=== PATIENT | male | born 1990 | race Caucasian/White ===

== ENCOUNTER 2022-06-07 22:04 | Emergency (ER) | payer MEDICAID, OTHER ==
[~2022-06-07] VITALS: Ht 167.6 cm; Wt 82.0 kg
[2022-06-08] MEDS ORDERED: ONDANSETRON HCL 4MG/2ML INJ IV STA (01:23)
[2022-06-08] MEDS ORDERED: FOLIC ACID 1 MG, THIAMINE HCL 100 MG, MVI, ADULT NO.1 10 ML in DEXTROSE 5% WATER 1,000 ML IV ONE ×4 (01:30)
[2022-06-08 02:14] LABS: CHLORIDE 104 mEq/L (98-107); EOSINOPHILS % 0.1 % (0.0-5.0); HEMATOCRIT. 49.6 % (42.0-52.0); LYMPHOCYTES % 25.8 % (20.0-50.0); MEAN CORPUSCULAR VOLUME 96.5 fL (80.0-94.0); MEAN PLATELET VOLUME 11.3 fl (7.4-10.4); MONOCYTES % 12.3 % (2.0-8.0); NEUTROPHILS % 58.8 % (40.0-76.0); PLATELET 115 x1000/uL (130-400); RED BLOOD CELL COUNT 5.14 mill/uL (4.7-6.1); RED CELL DISTRIBUTION WIDTH 13.9 % (11.6-14.6)
[2022-06-08] MEDS ORDERED: ONDA4TAB50 MT (04:39)
[2022-06-08 04:50] VITALS: BP 125/83
== END 2022-06-08 05:06 | disposition home or self-care (01) ==
LOC: EDBD → ER 22:04
DX: F10.229 Alcohol dependence with intoxication, unspecified (principal); F12.10 Cannabis abuse, uncomplicated; Y90.9 Presence of alcohol in blood, level not specified; M79.18 Myalgia, other site; R74.01 Elevation of levels of liver transaminase levels; R74.8 Abnormal levels of other serum enzymes
CPT/HCPCS: 36415; 80053; 83690; 85025; 96365; 96366; 96375; 99284; J2405; J3411; J3490; J7070

== ENCOUNTER 2022-06-08 06:15 | Inpatient (IN) | payer MEDICAID, OTHER ==
[~2022-06-08] VITALS: Ht 177.8 cm; Wt 83.9 kg
[~2022-06-08 06:15] MED LIST: ONDA4TAB50 MT
[2022-06-08] MEDS ORDERED: LORAZEPAM 2MG/ML CPJ IV STA (07:38)
[2022-06-08] MEDS ORDERED: FOLIC ACID 1 MG, THIAMINE HCL 100 MG, MVI, ADULT NO.1 10 ML in DEXTROSE 5% WATER 1,000 ML IV ONE ×4 (07:45)
[2022-06-08] MEDS ORDERED: ONDANSETRON HCL 4MG/2ML INJ IV ONE (07:45)
[2022-06-08 07:58] LABS: HEMATOCRIT. 46.4 % (42.0-52.0); HEMOGLOBIN. 15.6 g/dL (14.0-18.0); MEAN CORPUSCULAR HEMOGLOBIN 32.7 pg (28.0-32.0); MEAN CORPUSCULAR VOLUME 97.1 fL (80.0-94.0); MEAN PLATELET VOLUME 11.9 fl (7.4-10.4); PLATELET 106 x1000/uL (130-400); RED BLOOD CELL COUNT 4.78 mill/uL (4.7-6.1)
[2022-06-08 08:05] LABS: CHLORIDE 100 mEq/L (98-107)
[2022-06-08 08:14] LABS: ETHANOL BLOOD 269 mg/dL
[2022-06-08 09:15] LABS: PLATELET ESTIMATE DECREASED
[2022-06-08 11:01] VITALS: BP 130/84
[2022-06-08] MEDS ORDERED: MAGNESIUM/ALUMINUM HYDROXIDE/SIMETHICONE 30ML UDC PO PRN (11:30)
[2022-06-08] MEDS ORDERED: CLONIDINE 0.1MG TABLET PO PRN (11:30)
[2022-06-08] MEDS ORDERED: ACETAMINOPHEN 325MG TABLET PO PRN ×2 (11:30)
[2022-06-08] MEDS ORDERED: ZOLPIDEM TARTRATE 5MG TABLET PO PRN (11:30)
[2022-06-08 12:00] VITALS: BP 130/84
[2022-06-08] MEDS ORDERED: KETOROLAC 15MG/ML VIAL IV PRN (13:00)
[2022-06-08] MEDS: CHLORDIAZEPOXIDE 25MG CAPSULE PO SCH ×2 (14:11→21:26)
[2022-06-08] MEDS: LORAZEPAM 2MG/ML CPJ IV PRN ×3 (14:11→22:45)
[2022-06-08] MEDS: SODIUM CHLORIDE 0.9% 1,000 ML IV SCH ×2 (14:11→21:26)
[2022-06-08] MEDS ORDERED: INFLUENZA VACCINE 05/PF 0.5 ML SYRINGE IM ONE (15:15)
[2022-06-08] MEDS ORDERED: PNEUMOCOCCAL 23-VAL P-SAC VAC 0.5 ML IM ONE (15:30)
[2022-06-08 16:00] VITALS: BP 148/79
[2022-06-08] MEDS: ONDANSETRON HCL 4MG/2ML INJ IV PRN ×2 (19:07→22:45)
[2022-06-08 20:00] VITALS: BP 155/80
[2022-06-08] MEDS: FAMOTIDINE 20MG/2ML VIAL IV SCH (21:26)
[2022-06-09] VITALS: BP 149/74
[2022-06-09] MEDS: DIPHENHYDRAMINE 50MG/ML VIAL IV PRN ×5 (01:10→22:04)
[2022-06-09 04:00] VITALS: BP 138/97
[2022-06-09] MEDS: LORAZEPAM 2MG/ML CPJ IV PRN ×5 (04:04→22:04)
[2022-06-09] MEDS: ONDANSETRON HCL 4MG/2ML INJ IV PRN (04:10)
[2022-06-09] MEDS: CHLORDIAZEPOXIDE 25MG CAPSULE PO SCH ×4 (05:13→22:04)
[2022-06-09 07:26] LABS: HEMATOCRIT. 46.2 % (42.0-52.0); HEMOGLOBIN. 15.4 g/dL (14.0-18.0); MEAN CORPUSCULAR HEMOGLOBIN 32.9 pg (28.0-32.0); MEAN CORPUSCULAR VOLUME 98.7 fL (80.0-94.0); RED BLOOD CELL COUNT 4.68 mill/uL (4.7-6.1); RED CELL DISTRIBUTION WIDTH 13.8 % (11.6-14.6)
[2022-06-09] MEDS: SODIUM CHLORIDE 0.9% 1,000 ML IV SCH (07:30)
[2022-06-09] MEDS: FAMOTIDINE 20MG/2ML VIAL IV SCH ×2 (08:35→22:04)
[2022-06-09 09:08] LABS: MEAN PLATELET VOLUME 12.5 fl (7.4-10.4); PLATELET ESTIMATE DECREASED
[2022-06-09 09:09] LABS: PLATELET 99 x1000/uL (130-400)
[2022-06-09 09:36] LABS: CHLORIDE 94 mEq/L (98-107)
[2022-06-09 09:48] LABS: PHOSPHORUS 3.3 mg/dL (2.5-4.9)
[2022-06-09] MEDS ORDERED: POTASSIUM CHLORIDE INJ 40 MEQ in DEXT 5% WATER 250 ML IV ONE (11:00)
[2022-06-09] MEDS: KCL 20MEQ/100ML X 2 FOR TOTAL KCL 40MEQ/200ML IV SCH ×2 (13:36→17:41)
[2022-06-09 20:00] VITALS: BP 150/118
[2022-06-10] VITALS: BP 127/89
[2022-06-10 03:35] LABS: CLARITY URINE CLOUDY (CLEAR); COLOR URINE ORANGE (YELLOW); KETONES URINE 2+ (NEGATIVE); LEUKOCYTE ESTERASE URINE TRACE (NEGATIVE); NITRITE URINE POSITIVE (NEGATIVE); OCCULT BLOOD URINE 3+ (NEGATIVE); PH URINE 5.5 (4.5-8.0); PROTEIN URINE 4+ (NEGATIVE); SPECIFIC GRAVITY URINE 1.036 (1.005-1.030)
[2022-06-10] MEDS: LORAZEPAM 2MG/ML CPJ IV PRN ×4 (03:46→20:46)
[2022-06-10] MEDS: DIPHENHYDRAMINE 50MG/ML VIAL IV PRN ×4 (03:46→20:47)
[2022-06-10 03:50] LABS: *AMPHETAMINES SCREEN URINE NEGATIVE (NEGATIVE); *BARBITURATES SCREEN URINE NEGATIVE (NEGATIVE); *BENZODIAZEPINES SCREEN URINE PRESUMTIVE POSITIVE (NEGATIVE); *COCAINE SCREEN URINE NEGATIVE (NEGATIVE); CANNABINOID URINE SCREEN PRESUMTIVE POSITIVE (NEGATIVE); METHADONE URINE SCREEN NEGATIVE (NEGATIVE); OPIATES URINE SCREEN NEGATIVE (NEGATIVE); PHENCYCLIDINE URINE SCREEN NEGATIVE (NEGATIVE)
[2022-06-10 04:00] VITALS: BP 152/98
[2022-06-10 06:37] LABS: HEMATOCRIT. 50.6 % (42.0-52.0); HEMOGLOBIN. 16.5 g/dL (14.0-18.0); MEAN CORPUSCULAR HEMOGLOBIN 33.2 pg (28.0-32.0); MEAN CORPUSCULAR VOLUME 101.4 fL (80.0-94.0); RED BLOOD CELL COUNT 4.99 mill/uL (4.7-6.1); RED CELL DISTRIBUTION WIDTH 13.7 % (11.6-14.6)
[2022-06-10 06:40] LABS: CHLORIDE 107 mEq/L (98-107)
[2022-06-10 06:50] LABS: PHOSPHORUS 4.4 mg/dL (2.5-4.9)
[2022-06-10] MEDS: CHLORDIAZEPOXIDE 25MG CAPSULE PO SCH ×3 (06:56→21:03)
[2022-06-10] MEDS: SODIUM CHLORIDE 0.9% 1,000 ML IV SCH (06:57)
[2022-06-10 08:00] VITALS: BP 175/95
[2022-06-10] MEDS: FAMOTIDINE 20MG/2ML VIAL IV SCH ×2 (08:49→20:47)
[2022-06-10 10:48] LABS: MEAN PLATELET VOLUME 12.9 fl (7.4-10.4); PLATELET 100 x1000/uL (130-400)
[2022-06-10 10:55] LABS: PLATELET ESTIMATE SLIGHTLY DECREASED
[2022-06-10] MEDS: DEXT 5%/0.2% NACL 1,000 ML IV SCH (10:56)
[2022-06-10 12:00] VITALS: BP 141/105
[2022-06-10] MEDS ORDERED: THIAMINE HCL 100 MG in SODIUM CHLORIDE 0.9% 49 ML IV NR (17:30)
[2022-06-10 20:21] VITALS: BP 95/55
[2022-06-10 23:45] VITALS: BP 159/86
[2022-06-11] MEDS: DIPHENHYDRAMINE 50MG/ML VIAL IV PRN ×5 (00:47→17:37)
[2022-06-11] MEDS: LORAZEPAM 2MG/ML CPJ IV PRN ×5 (00:47→17:36)
[2022-06-11] MEDS: DEXT 5%/0.2% NACL 1,000 ML IV SCH ×4 (01:42→21:51)
[2022-06-11 04:00] VITALS: BP 158/112
[2022-06-11] MEDS: CHLORDIAZEPOXIDE 25MG CAPSULE PO SCH ×3 (06:27→21:48)
[2022-06-11 07:54] LABS: BASOPHILS % 0.8 % (0.0-2.0); HEMATOCRIT. 56.4 % (42.0-52.0); HEMOGLOBIN. 17.8 g/dL (14.0-18.0); LYMPHOCYTES % 15.4 % (20.0-50.0); MEAN CORPUSCULAR HEMOGLOBIN 33.1 pg (28.0-32.0); NEUTROPHILS % 70.8 % (40.0-76.0); RED BLOOD CELL COUNT 5.37 mill/uL (4.7-6.1)
[2022-06-11 08:00] VITALS: BP 127/66
[2022-06-11] MEDS: FAMOTIDINE 20MG/2ML VIAL IV SCH ×2 (08:43→21:48)
[2022-06-11] MEDS: METOPROLOL TARTRATE 25MG TABLET PO SCH ×2 (08:46→21:48)
[2022-06-11 09:00] LABS: CHLORIDE 112 mEq/L (98-107)
[2022-06-11 10:40] LABS: PLATELET 105 x1000/uL (130-400)
[2022-06-11 10:44] LABS: PLATELET ESTIMATE SLIGHTLY DECREASED
[2022-06-11] MEDS ORDERED: DEXT 5%/0.2% NACL 1,000 ML IV ONE (10:45)
[2022-06-11 11:49] VITALS: BP 147/95
[2022-06-11 16:00] VITALS: BP 119/72
[2022-06-11 19:21] LABS: CREATINE KINASE 64000 IU/L (39-308)
[2022-06-11 20:00] VITALS: BP 142/108
[2022-06-12] VITALS: BP 122/84
[2022-06-12] MEDS: DEXTROSE 5% WATER 1,000 ML IV SCH ×2 (00:50→06:49)
[2022-06-12] MEDS: LORAZEPAM 2MG/ML CPJ IV PRN ×3 (01:58→17:46)
[2022-06-12] MEDS: DIPHENHYDRAMINE 50MG/ML VIAL IV PRN ×2 (02:07→08:11)
[2022-06-12] MEDS: CHLORDIAZEPOXIDE 25MG CAPSULE PO SCH ×3 (05:08→22:10)
[2022-06-12 08:00] VITALS: BP 121/97
[2022-06-12 08:02] LABS: CHLORIDE 112 mEq/L (98-107)
[2022-06-12] MEDS: FAMOTIDINE 20MG/2ML VIAL IV SCH ×2 (08:11→22:09)
[2022-06-12] MEDS: METOPROLOL TARTRATE 25MG TABLET PO SCH ×2 (08:11→22:10)
[2022-06-12 08:13] LABS: PHOSPHORUS 3.3 mg/dL (2.5-4.9)
[2022-06-12 08:29] LABS: EOSINOPHILS % 0.2 % (0.0-5.0); HEMATOCRIT. 49.5 % (42.0-52.0); HEMOGLOBIN. 16.5 g/dL (14.0-18.0); LYMPHOCYTES % 11.3 % (20.0-50.0); MEAN CORPUSCULAR HEMOGLOBIN 33.2 pg (28.0-32.0); MEAN CORPUSCULAR VOLUME 99.8 fL (80.0-94.0); MONOCYTES % 11.3 % (2.0-8.0); NEUTROPHILS % 76.2 % (40.0-76.0); RED BLOOD CELL COUNT 4.96 mill/uL (4.7-6.1); RED CELL DISTRIBUTION WIDTH 13.2 % (11.6-14.6)
[2022-06-12] MEDS: SODIUM BICARBONATE 100 MEQ in DEXTROSE 5% WATER 1,000 ML IV SCH ×2 (08:50→16:24)
[2022-06-12 08:51] LABS: BG BASE EXCESS -3.5 mmol/L (-2.0-2.0); BG CARBOXYHEMOGLOBIN 0.3 % (0.5-1.5); BG DEOXYHEMOGLOBIN 4.3 % (0.0-5.0); BG FRACTION INSPIRED OXYGEN 24; BG HCO3 ACT 19.7 mmol/L (22.0-26.0); BG METHEMOGLOBIN 0.9 % (0.0-1.5); BG OXYGEN SATURATION 95.6 % (92.0-98.5); BG OXYHEMOGLOBIN 94.5 % (94.0-97.0); BG PCO2 31.5 mmHg (35.0-45.0); BG PH 7.414 (7.350-7.450); BG PO2 81.2 mmHg (75.0-100.0); BG SAMPLE SITE RIGHT RADIAL; BG VENT MODE ROOM AIR
[2022-06-12 09:33] LABS: MEAN PLATELET VOLUME 12.6 fl (7.4-10.4); PLATELET 69 x1000/uL (130-400)
[2022-06-12] MEDS ORDERED: CEFTRIAXONE 1 G PREMIX 50 ML IV SCH (09:45)
[2022-06-12] MEDS: CEFTRIAXONE 1,000 MG in DEXTROSE 5% WATER 50 ML IV SCH (11:22)
[2022-06-12 12:00] VITALS: BP 117/74
[2022-06-12 16:00] VITALS: BP 127/86
[2022-06-12 16:59] LABS: CREATINE KINASE 133500 IU/L (39-308)
[2022-06-12 20:00] VITALS: BP 116/74
[2022-06-13] VITALS: BP 114/70
[2022-06-13] MEDS: SODIUM BICARBONATE 100 MEQ in DEXTROSE 5% WATER 1,000 ML IV SCH ×3 (02:08→22:04)
[2022-06-13] MEDS: DIPHENHYDRAMINE 50MG/ML VIAL IV PRN ×5 (03:39→22:04)
[2022-06-13] MEDS: LORAZEPAM 2MG/ML CPJ IV PRN ×5 (03:39→22:04)
[2022-06-13 04:00] VITALS: BP 113/73
[2022-06-13] MEDS: CHLORDIAZEPOXIDE 25MG CAPSULE PO SCH ×2 (05:54→13:23)
[2022-06-13 08:00] VITALS: BP 130/80
[2022-06-13] MEDS: FAMOTIDINE 20MG/2ML VIAL IV SCH ×2 (08:08→22:04)
[2022-06-13] MEDS: METOPROLOL TARTRATE 25MG TABLET PO SCH ×2 (08:09→21:00)
[2022-06-13 09:26] LABS: BASOPHILS % 0.7 % (0.0-2.0); EOSINOPHILS % 1.7 % (0.0-5.0); HEMATOCRIT. 43.6 % (42.0-52.0); HEMOGLOBIN. 14.7 g/dL (14.0-18.0); LYMPHOCYTES % 12.4 % (20.0-50.0); MEAN CORPUSCULAR HEMOGLOBIN 33.4 pg (28.0-32.0); MONOCYTES % 11.2 % (2.0-8.0); RED CELL DISTRIBUTION WIDTH 12.6 % (11.6-14.6)
[2022-06-13 10:30] LABS: CHLORIDE 101 mEq/L (98-107)
[2022-06-13] MEDS: CEFTRIAXONE 1,000 MG in DEXTROSE 5% WATER 50 ML IV SCH (11:00)
[2022-06-13 11:03] LABS: PHOSPHORUS 2.1 mg/dL (2.5-4.9)
[2022-06-13 11:05] LABS: MEAN PLATELET VOLUME 13.8 fl (7.4-10.4); PLATELET 57 x1000/uL (130-400)
[2022-06-13 12:00] VITALS: BP 110/70
[2022-06-13] MEDS ORDERED: POTASSIUM CHLORIDE 20MEQ TABLET SR PO SCH (12:00)
[2022-06-13 12:43] LABS: CREATINE KINASE 16240 IU/L (39-308)
[2022-06-13 16:00] VITALS: BP 118/79
[2022-06-13 20:00] VITALS: BP 109/59
[2022-06-14] VITALS: BP 125/71
[2022-06-14 04:00] VITALS: BP 127/61
[2022-06-14] MEDS: SODIUM BICARBONATE 100 MEQ in DEXTROSE 5% WATER 1,000 ML IV SCH ×3 (06:41→23:05)
[2022-06-14 08:00] VITALS: BP 100/73
[2022-06-14] MEDS: FAMOTIDINE 20MG/2ML VIAL IV SCH (08:53)
[2022-06-14] MEDS: METOPROLOL TARTRATE 25MG TABLET PO SCH ×2 (08:53→21:00)
[2022-06-14] MEDS: CEFTRIAXONE 1,000 MG in DEXTROSE 5% WATER 50 ML IV SCH (11:16)
[2022-06-14 12:00] VITALS: BP 116/37
[2022-06-14] MEDS ORDERED: CHLORDIAZEPOXIDE 25MG CAPSULE PO SCH (13:30)
[2022-06-14 16:00] VITALS: BP 106/70
[2022-06-14] MEDS: THIAMINE HCL 100MG TABLET PO SCH (16:02)
[2022-06-14 17:00] LABS: CHLORIDE 100 mEq/L (98-107)
[2022-06-14 17:08] LABS: HEMATOCRIT. 40.8 % (42.0-52.0); MEAN CORPUSCULAR HEMOGLOBIN 33.2 pg (28.0-32.0); MEAN CORPUSCULAR VOLUME 96.7 fL (80.0-94.0); MEAN PLATELET VOLUME 14.5 fl (7.4-10.4); PLATELET 61 x1000/uL (130-400); RED BLOOD CELL COUNT 4.22 mill/uL (4.7-6.1); RED CELL DISTRIBUTION WIDTH 12.2 % (11.6-14.6)
[2022-06-14] MEDS: DIPHENHYDRAMINE 50MG/ML VIAL IV PRN (17:43)
[2022-06-14] MEDS: LORAZEPAM 2MG/ML CPJ IV PRN ×2 (17:43→23:40)
[2022-06-14 17:57] LABS: CREATINE KINASE 627 IU/L (39-308)
[2022-06-14 18:30] LABS: PHOSPHORUS 2.5 mg/dL (2.5-4.9)
[2022-06-14 20:00] VITALS: BP 112/62
[2022-06-14 20:29] LABS: PLATELET ESTIMATE DECREASED
[2022-06-14] MEDS: CHLORDIAZEPOXIDE 25MG CAPSULE PO SCH (21:48)
[2022-06-14] MEDS: OMEPRAZOLE 20MG CAPSULE EXTENDED RELEASE PO SCH (21:48)
[2022-06-14] MEDS: ONDANSETRON HCL 4MG/2ML INJ IV PRN (21:48)
[2022-06-15] VITALS: BP 146/49
[2022-06-15 04:00] VITALS: BP 124/37
[2022-06-15] MEDS: OMEPRAZOLE 20MG CAPSULE EXTENDED RELEASE PO SCH ×2 (05:57→21:00)
[2022-06-15] MEDS: CHLORDIAZEPOXIDE 25MG CAPSULE PO SCH ×3 (05:57→22:00)
[2022-06-15 08:00] LABS: MEAN CORPUSCULAR HEMOGLOBIN 33.3 pg (28.0-32.0); MEAN CORPUSCULAR VOLUME 97.5 fL (80.0-94.0); RED CELL DISTRIBUTION WIDTH 12.1 % (11.6-14.6)
[2022-06-15] MEDS: LORAZEPAM 2MG/ML CPJ IV PRN (08:35)
[2022-06-15] MEDS: THIAMINE HCL 100MG TABLET PO SCH (08:35)
[2022-06-15] MEDS: DIPHENHYDRAMINE 50MG/ML VIAL IV PRN (08:35)
[2022-06-15] MEDS: METOPROLOL TARTRATE 25MG TABLET PO SCH ×2 (08:36→21:00)
[2022-06-15 09:07] LABS: PLATELET ESTIMATE DECREASED
[2022-06-15 09:08] LABS: MEAN PLATELET VOLUME 13.5 fl (7.4-10.4); PLATELET 66 x1000/uL (130-400)
[2022-06-15 09:21] LABS: CHLORIDE 101 mEq/L (98-107)
[2022-06-15] MEDS: SODIUM CHLORIDE 0.9% 1,000 ML IV SCH ×2 (09:45→19:45)
[2022-06-15] MEDS ORDERED: POTASSIUM CHLORIDE 20MEQ/PACKET PO NR (09:45)
[2022-06-15] MEDS ORDERED: POTASSIUM CHLORIDE INJ 40 MEQ in DEXT 5% WATER 250 ML IV ONE (11:00)
[2022-06-15] MEDS ORDERED: POTASSIUM CHLORIDE 20MEQ TABLET SR PO NR (11:45)
[2022-06-15 12:00] VITALS: BP 140/91
[2022-06-15] MEDS ORDERED: MAGNESIUM 1 G PREMIX 100 ML IV NR (13:00)
[2022-06-15 13:06] LABS: ANTI-NUCLEAR ANTIBODIES DIRECT Negative (Negative)
[2022-06-15] MEDS: KCL 20MEQ/100ML X 2 FOR TOTAL KCL 40MEQ/200ML IV SCH ×2 (13:56→16:47)
[2022-06-15 16:00] VITALS: BP 108/65
[2022-06-15 20:00] VITALS: BP 108/60
[2022-06-16 00:22] VITALS: BP 108/63
[2022-06-16 04:00] VITALS: BP 115/61
[2022-06-16] MEDS: CHLORDIAZEPOXIDE 25MG CAPSULE PO SCH ×3 (06:23→21:10)
[2022-06-16] MEDS: OMEPRAZOLE 20MG CAPSULE EXTENDED RELEASE PO SCH ×2 (06:23→21:10)
[2022-06-16 07:56] LABS: CHLORIDE 106 mEq/L (98-107)
[2022-06-16 08:00] VITALS: BP 109/62
[2022-06-16 08:09] LABS: HEMATOCRIT. 36.4 % (42.0-52.0); HEMOGLOBIN. 12.4 g/dL (14.0-18.0); MEAN CORPUSCULAR HEMOGLOBIN 33.2 pg (28.0-32.0); MEAN CORPUSCULAR VOLUME 97.6 fL (80.0-94.0); RED BLOOD CELL COUNT 3.73 mill/uL (4.7-6.1); RED CELL DISTRIBUTION WIDTH 11.8 % (11.6-14.6)
[2022-06-16] MEDS: METOPROLOL TARTRATE 25MG TABLET PO SCH ×2 (09:03→20:51)
[2022-06-16] MEDS: THIAMINE HCL 100MG TABLET PO SCH (09:03)
[2022-06-16] MEDS ORDERED: POTASSIUM CHLORIDE 20MEQ/PACKET PO SCH (09:15)
[2022-06-16 12:00] VITALS: BP 158/95
[2022-06-16 14:27] LABS: PLATELET ESTIMATE DECREASED
[2022-06-16 14:28] LABS: MEAN PLATELET VOLUME 14.2 fl (7.4-10.4); PLATELET 93 x1000/uL (130-400)
[2022-06-16 16:00] VITALS: BP 128/71
[2022-06-16] MEDS ORDERED: POTASSIUM CHLORIDE 20MEQ TABLET SR PO SCH (16:00)
[2022-06-16 20:00] VITALS: BP 95/56
[2022-06-17 04:00] VITALS: BP 103/55
[2022-06-17] MEDS: CHLORDIAZEPOXIDE 25MG CAPSULE PO SCH ×3 (06:05→14:00)
[2022-06-17 07:34] LABS: HEMATOCRIT. 38.9 % (42.0-52.0); HEMOGLOBIN. 13.1 g/dL (14.0-18.0); MEAN CORPUSCULAR HEMOGLOBIN 32.9 pg (28.0-32.0); MEAN CORPUSCULAR VOLUME 97.7 fL (80.0-94.0); RED BLOOD CELL COUNT 3.98 mill/uL (4.7-6.1); RED CELL DISTRIBUTION WIDTH 12.2 % (11.6-14.6)
[2022-06-17 08:00] VITALS: BP 104/57
[2022-06-17 08:24] LABS: CHLORIDE 107 mEq/L (98-107)
[2022-06-17] MEDS: OMEPRAZOLE 20MG CAPSULE EXTENDED RELEASE PO SCH ×2 (08:36→20:38)
[2022-06-17] MEDS: THIAMINE HCL 100MG TABLET PO SCH (08:36)
[2022-06-17] MEDS: METOPROLOL TARTRATE 25MG TABLET PO SCH ×2 (08:37→20:38)
[2022-06-17 08:44] LABS: PHOSPHORUS 3.9 mg/dL (2.5-4.9)
[2022-06-17 09:45] LABS: PLATELET 113 x1000/uL (130-400)
[2022-06-17 10:10] LABS: PLATELET ESTIMATE SLIGHTLY DECREASED
[2022-06-17 12:00] VITALS: BP 108/63
[2022-06-17] MEDS ORDERED: MAGNESIUM 4 G PREMIX 100 ML IV SCH (12:00)
[2022-06-17 16:00] VITALS: BP 103/47
[2022-06-17 20:00] VITALS: BP 109/63
[2022-06-18] VITALS: BP 109/46
[2022-06-18] MEDS: CHLORDIAZEPOXIDE 25MG CAPSULE PO SCH (01:27)
[2022-06-18 04:00] VITALS: BP 109/44
[2022-06-18 08:00] VITALS: BP 120/79
[2022-06-18] MEDS: OMEPRAZOLE 20MG CAPSULE EXTENDED RELEASE PO SCH (08:27)
[2022-06-18] MEDS: METOPROLOL TARTRATE 25MG TABLET PO SCH (08:28)
[2022-06-18] MEDS: THIAMINE HCL 100MG TABLET PO SCH (08:28)
[2022-06-18] MEDS ORDERED: INFLUENZA VACCINE 05/PF 0.5 ML SYRINGE IM ONE (09:00)
[2022-06-18] MEDS ORDERED: PNEUMOCOCCAL 23-VAL P-SAC VAC 0.5 ML IM ONE (09:00)
[2022-06-18 12:00] VITALS: BP 93/57
[2022-06-18 16:00] VITALS: BP 100/64
[2022-06-18 20:00] VITALS: BP 149/62
[2022-06-19] VITALS: BP 105/61
[2022-06-19 04:00] VITALS: BP 97/44
[2022-06-19 08:00] VITALS: BP 92/62
[2022-06-19] MEDS: THIAMINE HCL 100MG TABLET PO SCH (09:27)
[2022-06-19 12:00] VITALS: BP 97/51
[2022-06-19 16:00] VITALS: BP 105/60
[2022-06-19 18:38] LABS: CHLORIDE 98 mEq/L (98-107)
[2022-06-19 18:46] LABS: PHOSPHORUS 3.9 mg/dL (2.5-4.9)
[2022-06-19 20:00] VITALS: BP 90/60
[2022-06-19 21:26] LABS: BASOPHILS % 1.1 % (0.0-2.0); EOSINOPHILS % 1.7 % (0.0-5.0); HEMATOCRIT. 37.1 % (42.0-52.0); HEMOGLOBIN. 12.4 g/dL (14.0-18.0); LYMPHOCYTES % 13.8 % (20.0-50.0); MEAN CORPUSCULAR HEMOGLOBIN 32.7 pg (28.0-32.0); MEAN PLATELET VOLUME 13.6 fl (7.4-10.4); MONOCYTES % 14.4 % (2.0-8.0); PLATELET 193 x1000/uL (130-400); RED BLOOD CELL COUNT 3.78 mill/uL (4.7-6.1); RED CELL DISTRIBUTION WIDTH 12.4 % (11.6-14.6)
[2022-06-20] VITALS: BP 98/56
[2022-06-20 04:00] VITALS: BP 103/63
[2022-06-20 07:23] LABS: BASOPHILS % 0.9 % (0.0-2.0); EOSINOPHILS % 1.4 % (0.0-5.0); HEMATOCRIT. 44.4 % (42.0-52.0); HEMOGLOBIN. 14.8 g/dL (14.0-18.0); LYMPHOCYTES % 8.7 % (20.0-50.0); MEAN CORPUSCULAR HEMOGLOBIN 33.2 pg (28.0-32.0); MEAN CORPUSCULAR VOLUME 99.9 fL (80.0-94.0); MONOCYTES % 9.5 % (2.0-8.0); NEUTROPHILS % 79.5 % (40.0-76.0); RED BLOOD CELL COUNT 4.45 mill/uL (4.7-6.1); RED CELL DISTRIBUTION WIDTH 12.5 % (11.6-14.6)
[2022-06-20 07:48] LABS: CHLORIDE 100 mEq/L (98-107)
[2022-06-20 07:58] LABS: PHOSPHORUS 4.3 mg/dL (2.5-4.9)
[2022-06-20 08:00] VITALS: BP 110/61
[2022-06-20] MEDS: THIAMINE HCL 100MG TABLET PO SCH (08:45)
[2022-06-20 09:36] LABS: PLATELET 185 x1000/uL (130-400)
[2022-06-20] MEDS: MAGNESIUM OXIDE 400MG TABLET PO SCH ×2 (09:37→15:31)
[2022-06-20 12:00] VITALS: BP 102/54
[2022-06-20] MEDS ORDERED: MAGNESIUM 4 G PREMIX 100 ML IV NR (12:00)
[2022-06-20] MEDS ORDERED: LACTULOSE 20G/30ML UDC PO NR (15:45)
[2022-06-20 16:00] VITALS: BP 115/59
[2022-06-20 20:00] VITALS: BP 114/71
[2022-06-21] VITALS: BP 112/56
[2022-06-21 04:00] VITALS: BP 98/56
[2022-06-21 08:00] VITALS: BP 112/69
[2022-06-21] MEDS: THIAMINE HCL 100MG TABLET PO SCH (08:11)
[2022-06-21] MEDS: MAGNESIUM OXIDE 400MG TABLET PO SCH (08:15)
[2022-06-21 12:00] VITALS: BP 103/60
[2022-06-21 16:00] VITALS: BP 117/37
[2022-06-21 16:24] VITALS: BP 103/65
== END 2022-06-21 17:45 | disposition home or self-care (01) | DRG 463 ==
LOC: EDBD 06:15 → ER 06:15 → 7WST 08:28 → EDBEDREQTM 08:41 → EDBEDREQ 08:41 → ENRESERV 09:37 → 7WST 06-09 09:03
PROVIDERS: ADMIT Internal Medicine; ATTEND Internal Medicine
PROC: 05HY33Z Insertion of Infusion Device into Upper Vein, Percutaneous Approach (ICD-10-PCS; principal; 2022-06-11)
DX: N39.0 Urinary tract infection, site not specified (principal); G93.41 Metabolic encephalopathy; N17.9 Acute kidney failure, unspecified; F10.231 Alcohol dependence with withdrawal delirium; E87.0 Hyperosmolality and hypernatremia; E87.4 Mixed disorder of acid-base balance; M62.82 Rhabdomyolysis; I10 Essential (primary) hypertension; E11.9 Type 2 diabetes mellitus without complications; R74.01 Elevation of levels of liver transaminase levels; K70.30 Alcoholic cirrhosis of liver without ascites; K76.0 Fatty (change of) liver, not elsewhere classified; E86.1 Hypovolemia; E86.9 Volume depletion, unspecified; R80.9 Proteinuria, unspecified; E83.42 Hypomagnesemia; Z59.00 Homelessness unspecified; Z78.1 Physical restraint status
CPT/HCPCS: 36415; 36573; 36600; 71045; 76700; 80048; 80053; 80305; 80320; 81003; 82140; 82375; 82550; 82570; 82805; 82962; 83520; 83735; 84100; 84156; 85025; 86038; 86160; 86256; 90686; 90732; 97162; 97166; 99285; A6261; C1725; C1893; J0696; J1200; J2060; J2405; J3411; J3475; J3480; J3490; J7030; J7060; J7070; A4315; G0480

== ENCOUNTER 2023-01-23 11:24 | Emergency (ER) | payer MEDICAID ==
[~2023-01-23] VITALS: Ht 177.8 cm; Wt 104.3 kg
[2023-01-23 12:22] LABS: CHLORIDE 108 mEq/L (98-107)
[2023-01-23 12:25] LABS: BASOPHILS % 0.9 % (0.0-2.0); EOSINOPHILS % 2.4 % (0.0-5.0); HEMATOCRIT. 48.3 % (42.0-52.0); HEMOGLOBIN. 16.6 g/dL (14.0-18.0); LYMPHOCYTES % 27.5 % (20.0-50.0); MEAN CORPUSCULAR HEMOGLOBIN 30.5 pg (28.0-32.0); MEAN CORPUSCULAR VOLUME 88.7 fL (80.0-94.0); MONOCYTES % 8.7 % (2.0-8.0); NEUTROPHILS % 60.5 % (40.0-76.0); RED BLOOD CELL COUNT 5.44 mill/uL (4.7-6.1); RED CELL DISTRIBUTION WIDTH 13.3 % (11.6-14.6)
[2023-01-23 12:28] LABS: ETHANOL BLOOD 72 mg/dL (-10)
[2023-01-23 13:09] LABS: PLATELET 165 x1000/uL (130-400)
[2023-01-23] MEDS ORDERED: LORAZEPAM 2MG/ML CPJ IM PRN (14:30)
[2023-01-23] MEDS ORDERED: CHLORDIAZEPOXIDE 25MG CAPSULE PO NR (14:30)
[2023-01-23 14:40] LABS: CLARITY URINE CLEAR (CLEAR); COLOR URINE YELLOW (YELLOW); KETONES URINE TRACE (NEGATIVE); LEUKOCYTE ESTERASE URINE TRACE (NEGATIVE); NITRITE URINE NEGATIVE (NEGATIVE); OCCULT BLOOD URINE NEGATIVE (NEGATIVE); PROTEIN URINE NEGATIVE (NEGATIVE); SPECIFIC GRAVITY URINE 1.016 (1.005-1.030)
[2023-01-23] MEDS: LORAZEPAM 2MG/ML CPJ IM NR (14:58)
[2023-01-23] MEDS ORDERED: CHLO25CA10 MT (15:21)
[2023-01-23] MEDS ORDERED: POTASSIUM CHLORIDE 20MEQ TABLET SR PO SCH (15:30)
[2023-01-23 15:35] VITALS: BP 146/90
== END 2023-01-23 15:36 | disposition home or self-care (01) ==
LOC: ER 13:08
DX: F10.139 Alcohol abuse with withdrawal, unspecified (principal); R56.9 Unspecified convulsions; E87.6 Hypokalemia; Y90.3 Blood alcohol level of 60-79 mg/100 ml
CPT/HCPCS: 36415; 80053; 80320; 81003; 82962; 85025; 93005; 99284; J2060; Z7610; G0480